=== PATIENT | female | born 1965 | race Caucasian/White ===

== ENCOUNTER 2021-03-23 16:11 | Emergency (ER) | payer OTHER ==
[~2021-03-23] VITALS: Ht 161.8 cm; Wt 82.8 kg
[2021-03-23 16:19] VITALS: BP 129/87
[2021-03-23] MEDS ORDERED: FLUORESCEIN OPTH STRIP 1 MG OP ONE (16:45)
[2021-03-23] MEDS ORDERED: TETRACAINE HCL/PF 0.5% OPTH 4 ML BTL OP ONE (16:45)
[2021-03-23 18:00] VITALS: BP 122/75
--- NOTE | 2021-03-23 18:01 | NUR ---
Karin magaña in [facility] - 03/23/21 at 1802 by [id number] R , L , BOTH EYE 2039
--- NOTE | 2021-03-23 18:02 | NUR ---
R 20/30, L 20/70, BOTH EYE 20/40
== END 2021-03-23 18:00 | disposition home or self-care (01) ==
LOC: MED 16:11
DX: H57.12 Ocular pain, left eye (principal); I10 Essential (primary) hypertension
CPT/HCPCS: 99283